=== PATIENT | female | born 1950 | race African-American/Black ===

== ENCOUNTER 2019-01-17 10:46 | Outpatient (CLI) | payer MEDICARE, OTHER ==
--- NOTE | 2019-01-30 15:27 | MMO ---
Bilateral MAMMO Bilat Screen [facility]. CLINICAL HISTORY: Patient is 68 years old and is seen for screening. The patient has no family history of breast cancer. The patient has no personal history of cancer. The patient has a history of left Excisional Biopsy in 2003 - benign and left Excisional Biopsy in 2009 - benign. VIEWS: The views performed were: bilateral craniocaudal with tomosynthesis and bilateral mediolateral oblique with tomosynthesis. FILMS COMPARED: The present examination has been compared to prior imaging studies performed at [facility] on 11/12/2015, 11/28/2016 and 11/07/2017. MAMMOGRAM FINDINGS: There are scattered fibroglandular densities. Finding 1: There is a stable focal asymmetry seen in the upper-outer region of the left breast. Finding 2: There are stable benign appearing calcifications seen in both breasts. There are no suspicious masses, suspicious calcifications, or new areas of architectural distortion. IMPRESSION: THERE IS NO MAMMOGRAPHIC EVIDENCE OF MALIGNANCY. A ROUTINE FOLLOW-UP MAMMOGRAM IN 1 YEAR IS RECOMMENDED. THE RESULTS OF THIS EXAM WERE SENT TO THE PATIENT. ACR BI-RADS Category 2 - Benign finding MAMMOGRAPHY NOTE: 1. A negative mammogram report should not delay a biopsy if a dominant of clinically suspicious mass is present. 2. Approximately 10% to 15% of breast cancers are not detected by mammography. 3. Adenosis and dense breasts may obscure an underlying neoplasm. Reported by: SORAIDA BELL MD Electonically Signed: [id number]
== END 2019-01-17 10:47 | disposition home or self-care (01) ==
LOC: BICMAMMO 10:46
PROVIDERS: ATTEND Family Medicine
DX: Z12.31 Encounter for screening mammogram for malignant neoplasm of breast (principal); Z91.89 Other specified personal risk factors, not elsewhere classified
CPT/HCPCS: 77063; 77067

== ENCOUNTER 2019-07-09 12:04 | Outpatient (CLI) | payer MEDICARE ==
--- NOTE | 2019-07-09 14:27 | CT ---
CT PULMONARY LUNG SCAN: HISTORY: Smoker for 60 years, currently smoking. The patient smokes about one pack every three days. FINDINGS: The lungs are clear of any infiltrative process. No pulmonary nodules are identified. Mediastinal structures appear unremarkable. The visualized liver parenchyma show no focal findings. The gallbladder has been removed. IMPRESSION: Lung-RADS category 1 - negative. POS: [facility]
== END 2019-07-09 12:05 | disposition home or self-care (01) ==
LOC: CT 12:04
PROVIDERS: ATTEND Student in an Organized Health Care Education/Training Program
DX: Z87.891 Personal history of nicotine dependence (principal)
CPT/HCPCS: G0297

== ENCOUNTER 2020-01-21 10:45 | Outpatient (CLI) | payer MEDICARE ==
--- NOTE | 2020-01-21 11:39 | MMO ---
Bilateral MAMMO Bilat Screen [facility]. CLINICAL HISTORY: Patient is 69 years old and is seen for screening. The patient has no family history of breast cancer. The patient has no personal history of cancer. The patient has a history of left Excisional Biopsy in 2003 - benign and left Excisional Biopsy in 2009 - benign. VIEWS: The views performed were: bilateral mediolateral oblique with tomosynthesis; bilateral craniocaudal with tomosynthesis; left craniocaudal; and right mediolateral oblique. FILMS COMPARED: The present examination has been compared to prior imaging studies performed at [facility] [place] [facility] on 01/17/2019, and at [facility] on 11/28/2016 and 11/07/2017. This study has been interpreted with the assistance of computer-aided detection. MAMMOGRAM FINDINGS: There are scattered fibroglandular densities. Finding 1: There is a stable focal asymmetry seen in the left breast. Finding 2: There are benign appearing calcifications seen in both breasts. There are no suspicious masses, suspicious calcifications, or new areas of architectural distortion. IMPRESSION: THERE IS NO MAMMOGRAPHIC EVIDENCE OF MALIGNANCY. A ROUTINE FOLLOW-UP MAMMOGRAM IN 1 YEAR IS RECOMMENDED. THE RESULTS OF THIS EXAM WERE SENT TO THE PATIENT. ACR BI-RADS Category 2 - Benign finding MAMMOGRAPHY NOTE: 1. A negative mammogram report should not delay a biopsy if a dominant of clinically suspicious mass is present. 2. Approximately 10% to 15% of breast cancers are not detected by mammography. 3. Adenosis and dense breasts may obscure an underlying neoplasm. Reported by: JEFFREY EAST MD Electonically Signed: [id number]
== END 2020-01-21 10:46 | disposition home or self-care (01) ==
LOC: BICMAMMO 10:45
PROVIDERS: ATTEND Student in an Organized Health Care Education/Training Program
DX: Z12.31 Encounter for screening mammogram for malignant neoplasm of breast (principal); Z91.89 Other specified personal risk factors, not elsewhere classified
CPT/HCPCS: 77063; 77067

== ENCOUNTER 2020-10-05 11:24 | Outpatient (CLI) | payer MEDICARE | END 2020-10-05 11:25 | disposition home or self-care (01) | LOC: BICRAD 11:24 | PROVIDERS: ATTEND Family Medicine | DX: M25.512 Pain in left shoulder (principal) ==

== ENCOUNTER 2020-10-08 13:15 | Outpatient (CLI) | payer MEDICARE | END 2020-10-08 13:16 | disposition home or self-care (01) | LOC: BICRAD 13:15 | PROVIDERS: ATTEND Internal Medicine Cardiovascular Disease | DX: R07.9 Chest pain, unspecified (principal); R06.02 Shortness of breath | CPT/HCPCS: 71046 ==

== ENCOUNTER 2020-11-19 12:15 | Outpatient (CLI) | payer MEDICARE | END 2020-11-19 12:16 | disposition home or self-care (01) | LOC: RAD 12:15 | PROVIDERS: ATTEND Internal Medicine Cardiovascular Disease | DX: Z48.812 Encounter for surgical aftercare following surgery on the circulatory system (principal); Z95.0 Presence of cardiac pacemaker | CPT/HCPCS: 71046 ==

== ENCOUNTER 2021-01-22 10:55 | Outpatient (CLI) | payer MEDICARE | END 2021-01-22 10:56 | disposition home or self-care (01) | LOC: BICMAMMO 10:55 | PROVIDERS: ATTEND Student in an Organized Health Care Education/Training Program | DX: Z12.31 Encounter for screening mammogram for malignant neoplasm of breast (principal); Z91.89 Other specified personal risk factors, not elsewhere classified | CPT/HCPCS: 77063; 77067 ==

== ENCOUNTER 2021-05-25 13:22 | Outpatient (CLI) | payer MEDICARE | END 2021-05-25 13:23 | disposition home or self-care (01) | LOC: BICRAD 13:22 | PROVIDERS: ATTEND Internal Medicine Cardiovascular Disease | DX: R06.02 Shortness of breath (principal) | CPT/HCPCS: 71046 ==

== ENCOUNTER 2021-05-31 13:33 | Outpatient (CLI) | payer MEDICARE | END 2021-05-31 13:34 | disposition home or self-care (01) | LOC: BICCT 13:33 | PROVIDERS: ATTEND Family Medicine | DX: Z12.2 Encounter for screening for malignant neoplasm of respiratory organs (principal); F17.210 Nicotine dependence, cigarettes, uncomplicated | CPT/HCPCS: 71271 ==

== ENCOUNTER 2021-08-23 12:05 | Outpatient (CLI) | payer MEDICARE | END 2021-08-23 12:06 | disposition home or self-care (01) | LOC: RAD 12:05 | PROVIDERS: ATTEND Internal Medicine Critical Care Medicine | DX: R06.00 Dyspnea, unspecified (principal) | CPT/HCPCS: 71046 ==

== ENCOUNTER 2021-09-01 13:20 | Outpatient (CLI) | payer MEDICARE | END 2021-09-01 13:21 | disposition home or self-care (01) | LOC: BICMAMMO 13:20 | PROVIDERS: ATTEND Student in an Organized Health Care Education/Training Program | DX: N63.25 Unspecified lump in the left breast, overlapping quadrants (principal) | CPT/HCPCS: 76642; 77065; G0279 ==

== ENCOUNTER 2021-09-02 17:00 | Outpatient (CLI) | payer MEDICARE | END 2021-09-02 17:01 | disposition home or self-care (01) | LOC: SLEEPLAB 17:00 | PROVIDERS: ATTEND Internal Medicine Critical Care Medicine | DX: G47.33 Obstructive sleep apnea (adult) (pediatric) (principal); J44.9 Chronic obstructive pulmonary disease, unspecified | CPT/HCPCS: 95806 ==

== ENCOUNTER → 2021-09-02 | Day surgery (SDC) | payer MEDICARE | LOC: BICULT 12:40 | PROVIDERS: ATTEND Student in an Organized Health Care Education/Training Program | PROC: 0HBU3ZX Excision of Left Breast, Percutaneous Approach, Diagnostic (ICD-10-PCS; principal; 2021-09-02) | DX: C50.812 Malignant neoplasm of overlapping sites of left female breast (principal) | CPT/HCPCS: 19083; 88305; 88341; 88342; 88360 ==

== ENCOUNTER 2021-11-04 10:17 | Outpatient (CLI) | payer MEDICARE | END 2021-11-04 10:18 | disposition home or self-care (01) | LOC: BICCT 10:17 | PROVIDERS: ATTEND Surgery | DX: C50.912 Malignant neoplasm of unspecified site of left female breast (principal); E27.8 Other specified disorders of adrenal gland | CPT/HCPCS: 71260; 74177; 82565 ==

== ENCOUNTER 2021-11-23 08:10 | Outpatient (CLI) | payer MEDICARE | END 2021-11-23 08:11 | disposition home or self-care (01) | LOC: NM 08:10 | PROVIDERS: ATTEND Surgery | DX: C50.919 Malignant neoplasm of unspecified site of unspecified female breast (principal) | CPT/HCPCS: 78306; A9503 ==

== ENCOUNTER 2021-12-13 11:37 | Outpatient (CLI) | payer MEDICARE ==
[2021-12-13 12:59] LABS: #Eosinphils 0.1 10x3/uL (0.0-0.5); #Monocytes 0.7 10x3/uL (0.0-1.1); %Basophils 0.6 % (0.0-2.0); %Eosinophils 1.3 % (0.0-6.0); %Lymphocytes 44.9 % (18.0-47.0); %Monocytes 10.3 % (0.0-10.0); %Neutrophils 42.6 % (40.0-75.0); Hemoglobin 12.1 g/dL (12.0-15.5); Mean Corpuscular HGB CONC 30.4 g/dL (32.0-36.0); Mean Corpuscular Hemoglobin 21.1 pg (27.0-33.0); Mean Corpuscular Volume 69.5 fl (81.6-98.3); Mean Platelet Volume 10.1 fl (7.4-10.4); Platelet Count 238 10x3/uL (150-450); RBC Distribution Width 19.8 % (11.5-14.5); Red Blood Cell (RBC) Count 5.73 10x6/uL (3.90-5.03); White Blood Cell (WBC) Count 7.1 10x3/uL (3.5-10.5)
[2021-12-13 13:22] LABS: Anion Gap 19 mmol/L (10-20); BUN (Urea Nitrogen) 17 mg/dL (9.8-20.1); Calc. Creatinine Clearance 0 mL/min (70-130); Calcium 9.1 mg/dL (7.8-10.44); Carbon Dioxide 21 mmol/L (23-31); Chloride 109 mmol/L (98-107); Glucose 194 mg/dL (83-110); Potassium 3.9 mmol/L (3.5-5.1); Sodium 145 mmol/L (136-145)
[2021-12-13 15:02] LABS: Microcytosis MODERATE=15-30 cells (100X) (0-5/hpf)
[2021-12-13 15:03] LABS: Anisocytosis SLIGHT = 6-15 cells (100X) (0-5/hpf); Elliptocytes SLIGHT = 2-5 cells (100X) (0-1/hpf); Large Platelets SLIGHT; Platelet Morphology Comment Appears Adequate
[2021-12-14] LABS: SARS-CoV-2 PCR by NAA Not Detected (NotDetected)
== END 2021-12-13 11:38 | disposition home or self-care (01) ==
LOC: LABBT 11:37
PROVIDERS: ATTEND Surgery
DX: Z01.818 Encounter for other preprocedural examination (principal); C50.919 Malignant neoplasm of unspecified site of unspecified female breast; Z20.822 Contact with and (suspected) exposure to COVID-19
CPT/HCPCS: 71046; 80048; 85025; 93005; U0003; U0005; 93010

== ENCOUNTER 2021-12-16 05:35 | Inpatient (IN) | payer MEDICARE ==
[2021-12-16] MEDS ORDERED: Lidocaine 1% (PF) 30 ML VIAL ONE ×2 (08:13→09:28)
[2021-12-16] MEDS ORDERED: Gentamicin 80 MG/100 ML BAG ONE ×2 (08:13→10:36)
[2021-12-16] MEDS ORDERED: ceFAZolin 2 GM/Dextrose 50 ML IVPB ONE (08:13)
[2021-12-16] MEDS ORDERED: CEFAZOLIN 1 GM VIAL ONE ×2 (08:13→10:36)
[2021-12-16] MEDS ORDERED: fentaNYL Citrate/PF 100 MCG/2 ML SYRINGE ONE (08:45)
[2021-12-16] MEDS ORDERED: Iopamidol 370 76% 50 ML VIAL FS ONE (08:52)
[2021-12-16] MEDS ORDERED: Acetaminophen 500 MG TAB ONE (09:10)
[2021-12-16] MEDS ORDERED: Midazolam HCl 2 mg/2 ml Vial ONE ×2 (09:18→11:39)
[2021-12-16] MEDS ORDERED: Fentanyl 100 MCG/2 ML VIAL ONE ×2 (09:19→15:10)
[2021-12-16] MEDS ORDERED: Ondansetron PF 4 MG/2 ML Vial ONE (09:43)
[2021-12-16] MEDS ORDERED: PHENYLEPHRINE-NS 100 MCG/ML 10 ML SYRINGE ONE (11:56)
[2021-12-16] MEDS ORDERED: PROPOFOL 200 MG/20 ML VIAL ONE (11:56)
[2021-12-16] MEDS ORDERED: ePHEDrine 50 MG/ML VIAL ONE (11:56)
[2021-12-16] MEDS ORDERED: Rocuronium Bromide 10 MG/ML (10ML VIAL) ONE (11:56)
[2021-12-16] MEDS ORDERED: Lidocaine 1% PF 5 ML VIAL ONE (11:56)
[2021-12-16] MEDS ORDERED: Dexamethasone 20 MG/5 ML VIAL ONE (11:56)
[2021-12-16] MEDS ORDERED: Promethazine HCl 25 MG/ML VIAL IVPB PRN (14:16)
[2021-12-16] MEDS ORDERED: Ondansetron HCl/PF 4 MG/2 ML Vial IVP PRN (14:16)
[2021-12-16] MEDS ORDERED: Promethazine HCl 25 MG/ML VIAL IM PRN (14:16)
[2021-12-16] MEDS ORDERED: Propofol 500 MG/50 ML VIAL ONE (14:29)
[2021-12-16] MEDS ORDERED: PROPOFOL 20 ML ONE (14:30)
[2021-12-16] MEDS ORDERED: HYDROcodone/Acetaminophen 7.5/325 mg Tablet PO PRN (15:56)
[2021-12-16] MEDS ORDERED: Acetaminophen 325 MG TAB PO PRN (15:57)
[2021-12-16] MEDS ORDERED: traMADol HCl 50 MG TAB PO PRN ×2 (15:58)
[2021-12-16] MEDS ORDERED: Ondansetron PF 4 MG/2 ML Vial IVP PRN (15:59)
[2021-12-16 16:08] VITALS: BMI 42.0
[2021-12-16] MEDS: Sodium Chloride 0.9% 1,000 ML IV SCH (17:14)
[2021-12-16] MEDS: HYDROcodone/Acetaminophen 7.5/325 mg Tablet PO PRN (20:55)
[2021-12-16] MEDS: Morphine 2 MG/ML VIAL SLOW IVP PRN ×2 (20:56→23:27)
[2021-12-16] MEDS: Cephalexin 250 MG CAP PO SCH (20:59)
[2021-12-16] MEDS ORDERED: Mirtazapine 15 MG TAB PO SCH (21:00)
[2021-12-16] MEDS ORDERED: Atorvastatin Calcium 10 MG TAB PO SCH (21:00)
[2021-12-16] MEDS ORDERED: hydrOXYzine 25 MG TAB PO SCH (21:00)
[2021-12-17] MEDS: Sodium Chloride 0.9% 1,000 ML IV SCH ×2 (01:24→12:21)
[2021-12-17] MEDS: HYDROcodone/Acetaminophen 7.5/325 mg Tablet PO PRN (06:07)
[2021-12-17 06:41] LABS: #Monocytes 1.1 thou/uL (0.11-0.59); #Neutrophils 8.2 thou/uL (1.40-6.50); %Basophils 0.1 % (0.0-1.0); %Eosinophils 0.2 % (0.0-10.0); %Lymphocytes 17.5 % (21.0-51.0); %Monocytes 9.6 % (0.0-10.0); %Neutrophils 72.6 % (42.0-75.0); Hemoglobin 10.9 g/dL (12.0-16.0); Mean Corpuscular HGB CONC 29.9 g/dL (32.0-36.0); Mean Corpuscular Hemoglobin 21.8 pg (27.0-31.0); Mean Corpuscular Volume 73.1 fL (78.0-98.0); Mean Platelet Volume 11.1 fL (7.4-10.4); Platelet Count 159 thou/uL (130-400); RBC Distribution Width 16.5 % (11.5-14.5); Red Blood Cell (RBC) Count 4.97 mill/uL (4.20-5.40); White Blood Cell (WBC) Count 11.2 thou/uL (4.8-10.8)
[2021-12-17 07:37] LABS: Anion Gap 12 mmol/L (10-20); BUN (Urea Nitrogen) 14 mg/dL (9.8-20.1); Calc. Creatinine Clearance 108 mL/min (70-130); Calcium 8.7 mg/dL (7.8-10.44); Carbon Dioxide 25 mmol/L (23-31); Chloride 107 mmol/L (98-107); Glucose 150 mg/dL (83-110); Potassium 4.1 mmol/L (3.5-5.1); Sodium 140 mmol/L (136-145)
[2021-12-17 08:07] VITALS: BP 138/82; TEMP 98.2
[2021-12-17] MEDS ORDERED: Lisinopril 10 MG TAB PO SCH (09:00)
[2021-12-17] MEDS ORDERED: Enoxaparin Sodium 40 MG/0.4 ML SYRINGE SC SCH (09:00)
[2021-12-17] MEDS ORDERED: Furosemide 40 MG TAB PO SCH (09:00)
[2021-12-17] MEDS: Cephalexin 250 MG CAP PO SCH (09:07)
== END 2021-12-17 11:00 | disposition home or self-care (01) | DRG 583 ==
LOC: SDC 05:35 → SJJU 14:58
PROVIDERS: ADMIT Surgery; ATTEND Surgery
PROC: 0HTV0ZZ Resection of Bilateral Breast, Open Approach (ICD-10-PCS; principal; 2021-12-16)
PROC: 0JH606Z Insertion of Pacemaker, Dual Chamber into Chest Subcutaneous Tissue and Fascia, Open Approach (ICD-10-PCS; 2021-12-16)
PROC: 02H60JZ Insertion of Pacemaker Lead into Right Atrium, Open Approach (ICD-10-PCS; 2021-12-16)
PROC: 02HK0JZ Insertion of Pacemaker Lead into Right Ventricle, Open Approach (ICD-10-PCS; 2021-12-16)
DX: C50.912 Malignant neoplasm of unspecified site of left female breast (principal); Z45.018 Encounter for adjustment and management of other part of cardiac pacemaker; I10 Essential (primary) hypertension; Z88.8 Allergy status to other drugs, medicaments and biological substances; Z90.710 Acquired absence of both cervix and uterus; Z90.49 Acquired absence of other specified parts of digestive tract; Z98.890 Other specified postprocedural states; Z20.822 Contact with and (suspected) exposure to COVID-19
CPT/HCPCS: 33215; 33222; 36415; 75820; 80048; 85025; 99152; 99153; C1898; J0690; J1580; J1650; J2001; J2250; J2270; J2405; J2704; J3010; J7050; Q9967

== ENCOUNTER 2022-01-27 15:18 | Outpatient (CLI) | payer MEDICARE ==
[2022-01-27 17:22] LABS: Hemoglobin 13.1 g/dL (12.0-15.5); Mean Corpuscular HGB CONC 30.8 g/dL (32.0-36.0); Mean Corpuscular Hemoglobin 20.8 pg (27.0-33.0); Mean Corpuscular Volume 67.7 fl (81.6-98.3); Platelet Count 260 10x3/uL (150-450); Red Blood Cell (RBC) Count 6.29 10x6/uL (3.90-5.03); White Blood Cell (WBC) Count 9.1 10x3/uL (3.5-10.5)
[2022-01-27 17:28] LABS: Anion Gap 18 mmol/L (10-20); BUN (Urea Nitrogen) 14 mg/dL (9.8-20.1); Calc. Creatinine Clearance 0 mL/min (70-130); Calcium 9.5 mg/dL (7.8-10.44); Carbon Dioxide 22 mmol/L (23-31); Chloride 105 mmol/L (98-107); Estimated GFR 45; Glucose 92 mg/dL (83-110); Potassium 4.2 mmol/L (3.5-5.1); Sodium 141 mmol/L (136-145)
[2022-01-27 17:34] LABS: MDiff Complete? YES
[2022-01-27 18:18] LABS: Eosinophils 2 % (0-10); Lymphocytes 46 % (21-51); Monocytes 13 % (0-10); Neutrophil 37 % (42-75); Reactive Lymphocytes 2 % (0-10)
[2022-01-27 18:21] LABS: Anisocytosis MODERATE=16-30 cells (100X) (0-5/hpf); Microcytosis MODERATE=15-30 cells (100X) (0-5/hpf)
[2022-01-27 18:22] LABS: Large Platelets SLIGHT; Platelet Morphology Comment Appears Adequate
== END 2022-01-27 15:19 | disposition home or self-care (01) ==
LOC: LABBT 15:18
PROVIDERS: ATTEND Internal Medicine Cardiovascular Disease
DX: Z01.812 Encounter for preprocedural laboratory examination (principal); Z20.822 Contact with and (suspected) exposure to COVID-19; Z95.0 Presence of cardiac pacemaker
CPT/HCPCS: 80048; 85025; 87811

== ENCOUNTER 2022-01-31 05:52 | Day surgery (SDC) | payer MEDICARE ==
[2022-01-28 09:57] VITALS: BMI 42.2
[2022-01-31] MEDS ORDERED: ceFAZolin 2 GM/Dextrose 50 ML IVPB ONE (06:20)
[2022-01-31] MEDS ORDERED: Lidocaine 1% (PF) 30 ML VIAL ONE ×3 (06:20→07:52)
[2022-01-31] MEDS ORDERED: Gentamicin 80 MG/100 ML BAG ONE (06:20)
[2022-01-31] MEDS ORDERED: CEFAZOLIN 1 GM VIAL ONE (06:20)
[2022-01-31] MEDS ORDERED: Vancomycin 1 GM/200 ML BAG ONE (06:23)
[2022-01-31] MEDS ORDERED: Fentanyl 100 MCG/2 ML VIAL ONE (06:53)
[2022-01-31] MEDS ORDERED: Midazolam HCl 2 mg/2 ml Vial ONE ×2 (06:53→08:59)
[2022-01-31] MEDS ORDERED: Acetaminophen/Codeine 30-300mg Tablet ONE (10:03)
[2022-01-31] MEDS ORDERED: Lisinopril 10 MG TAB ONE (11:09)
[2022-01-31] MEDS ORDERED: hydrALAZINE 20 MG/ML VIAL ONE (11:09)
[2022-01-31] MEDS ORDERED: hydrALAZINE 20 MG/ML VIAL SLOW IVP SCH (11:15)
[2022-01-31] MEDS ORDERED: Lisinopril 10 MG TAB PO SCH (11:15)
== END 2022-01-31 13:45 | disposition home or self-care (01) ==
LOC: SDC 05:52
PROVIDERS: ATTEND Internal Medicine Cardiovascular Disease
PROC: 02WA3MZ Revision of Cardiac Lead in Heart, Percutaneous Approach (ICD-10-PCS; principal; 2022-01-31)
DX: T82.120A Displacement of cardiac electrode, initial encounter (principal); I11.9 Hypertensive heart disease without heart failure; I70.0 Atherosclerosis of aorta; G47.30 Sleep apnea, unspecified; E78.00 Pure hypercholesterolemia, unspecified; F17.210 Nicotine dependence, cigarettes, uncomplicated; C50.912 Malignant neoplasm of unspecified site of left female breast; Z86.16 Personal history of COVID-19; Z79.899 Other long term (current) drug therapy; Z88.5 Allergy status to narcotic agent; Z88.8 Allergy status to other drugs, medicaments and biological substances; Z91.048 Other nonmedicinal substance allergy status; Z95.0 Presence of cardiac pacemaker; Y71.1 Therapeutic (nonsurgical) and rehabilitative cardiovascular devices associated with adverse incidents
CPT/HCPCS: 33244; 71045; 93005; 99152; 99153; J0360; J0690; J1580; J2001; J2250; J3010; J3370

== ENCOUNTER 2023-09-20 13:25 | Outpatient (CLI) | payer MEDICARE | END 2023-09-20 13:26 | disposition home or self-care (01) | LOC: RAD 13:25 | PROVIDERS: ATTEND Internal Medicine Critical Care Medicine | DX: R06.00 Dyspnea, unspecified (principal) | CPT/HCPCS: 71046 ==